=== PATIENT | female | born 1960 | race Caucasian/White ===

== ENCOUNTER 2016-03-30 11:10 | Emergency (ER) | payer OTHER ==
[~2016-03-30] VITALS: Ht 162.6 cm; Wt 99.3 kg
[~2016-03-30 11:10] MED LIST: AMPHETAMINE SAL20 M1 PO; BENTYL 20 MG TA20 M1 PO; CLONAZEPAM 1 MG1 M1 PO; CYCLOBENZAPRINE5 MG PO; GEODON80 MG PO; GLUCOPHAGE1000 MG PO; HYDROCODONE-AP1 EAC6 PO; INVOKANA100 MG PO; JANUMET XR 50-1 EAC1 PO; LAMOTRIGINE200 MG PO; LANTUS SUBQ; LANTUS100 UNIT/M SUBQ; LIDODERM 5%1 PATC1 TRANSDERM; LISINOPRIL10 MG PO; MACROBID 100 M100 M1 PO; NEXIUM40 MG PO; NORFLEX100 MG PO; PEPCID40 MG PO; PERCOCET 5-3251 EACH PO; PHENERGAN 25 MG25 M1 PO; PRAVACHOL80 MG PO; SERTRALINE HCL100 MG PO; TOPAMAX100 MG PO; VICTOZA0.6 MG/0.1 SQ
[2016-03-30] MEDS ORDERED: LEVOTHYROXINE0.05 MG PO (11:42)
[2016-03-30 11:57] LABS: ABSOLUTE NEUTROPHILS 6.7 thou/uL (1.4-8.2); BASOPHILS 0.8 % (0.0-2.0); EOSINOPHILS 1.9 % (0.0-3.0); HEMATOCRIT 38.9 % (37.0-47.0); HEMOGLOBIN 12.9 gm/dL (12.0-15.0); LYMPHOCYTES 19.6 % (24.0-44.0); MANUAL DIFF NO; MCH 30.3 pg (26.0-34.0); MCHC 33.2 % (28.0-37.0); MCV 91.4 fL (80.0-100.0); MONOCYTES 5.9 % (1.0-8.0); PLATELET COUNT 234 thou/uL (150-400); POLYS 71.8 % (36.0-66.0); RBC 4.25 mil/uL (4.20-5.00); RDW 13.5 % (10.5-14.5); WBC 9.4 thou/uL (4.0-11.0)
[2016-03-30 12:00] LABS: CALCIUM 8.9 mg/dL (8.5-10.1); CREATININE 0.9 mg/dL (0.6-1.3); POTASSIUM 4.3 mmol/L (3.5-5.1)
[2016-03-30 12:06] LABS: URINE BILIRUBIN NEGATIVE (Negative); URINE BLOOD 3+ (Negative); URINE COLOR ORANGE; URINE GLUCOSE-RANDOM* 1+ (Negative); URINE KETONES NEGATIVE (Negative); URINE LEUKOCYTES-REFLEX NEGATIVE (Negative); URINE PROTEIN (DIPSTICK) TRACE (Negative); URINE SPECIFIC GRAVITY >= 1.030 (1.003-1.035); URINE UROBILINOGEN 0.2 E.U./dl (0.2-1.0)
[2016-03-30 12:07] LABS: ALBUMIN 3.4 g/dL (3.4-5.0); TOTAL BILIRUBIN 0.1 mg/dL (<0.1-1.0); TOTAL PROTEIN 7.3 g/dL (6.4-8.2)
[2016-03-30 12:44] LABS: SQUAMOUS >10 Many /LPF (0-3)
[2016-03-30] MEDS ORDERED: IBUPROFEN 600600 M1 PO (12:44)
[2016-03-30] MEDS ORDERED: NORCO 5-325 TA1 EACH PO (12:44)
[2016-03-30 12:45] LABS: CASTS None Seen /LPF (None Seen); CRYSTALS None Seen /LPF (None Seen); URINE RBC >20 Many /HPF (0-2); URINE WBC-REFLEX 6-15 Few /HPF (0-5)
[2016-03-30 12:59] VITALS: BP 116/75
== END 2016-03-30 13:00 | disposition home or self-care (01) ==
LOC: ER 11:10
PROVIDERS: Physician Assistant
DX: N23 Unspecified renal colic (principal); E11.9 Type 2 diabetes mellitus without complications; F31.9 Bipolar disorder, unspecified; I10 Essential (primary) hypertension; E78.5 Hyperlipidemia, unspecified; K21.9 Gastro-esophageal reflux disease without esophagitis; Z98.890 Other specified postprocedural states; Z88.1 Allergy status to other antibiotic agents

== ENCOUNTER 2016-04-01 03:44 | Emergency (ER) | payer OTHER ==
[~2016-04-01] VITALS: Ht 162.6 cm; Wt 99.3 kg
[~2016-04-01 03:44] MED LIST changes: +IBUPROFEN 600600 M1 PO; +LEVOTHYROXINE0.05 MG PO; +NORCO 5-325 TA1 EACH PO
[2016-04-01 04:36] LABS: ABSOLUTE NEUTROPHILS 7.5 thou/uL (1.4-8.2); BASOPHILS 0.7 % (0.0-2.0); EOSINOPHILS 2.6 % (0.0-3.0); HEMATOCRIT 38.9 % (37.0-47.0); HEMOGLOBIN 12.6 gm/dL (12.0-15.0); LYMPHOCYTES 26.3 % (24.0-44.0); MCH 29.9 pg (26.0-34.0); MCHC 32.5 % (28.0-37.0); MCV 92.1 fL (80.0-100.0); MONOCYTES 7.6 % (1.0-8.0); PLATELET COUNT 242 thou/uL (150-400); POLYS 62.8 % (36.0-66.0); RBC 4.22 mil/uL (4.20-5.00); RDW 13.3 % (10.5-14.5)
[2016-04-01 04:39] LABS: MANUAL DIFF NO
[2016-04-01 04:41] LABS: CALCIUM 9.2 mg/dL (8.5-10.1); POTASSIUM 3.7 mmol/L (3.5-5.1)
[2016-04-01 04:55] LABS: URINE BILIRUBIN NEGATIVE (Negative); URINE BLOOD 3+ (Negative); URINE COLOR YELLOW; URINE GLUCOSE-RANDOM* NEGATIVE (Negative); URINE KETONES NEGATIVE (Negative); URINE LEUKOCYTES-REFLEX NEGATIVE (Negative); URINE PROTEIN (DIPSTICK) NEGATIVE (Negative); URINE SPECIFIC GRAVITY >= 1.030 (1.003-1.035); URINE UROBILINOGEN 0.2 E.U./dl (0.2-1.0)
[2016-04-01 05:09] LABS: SQUAMOUS >10 Many /LPF (0-3)
[2016-04-01 05:10] LABS: CASTS None Seen /LPF (None Seen); CRYSTALS None Seen /LPF (None Seen); URINE RBC >20 Many /HPF (0-2); URINE WBC-REFLEX 0-5 Rare /HPF (0-5)
[2016-04-01 06:53] VITALS: BP 145/79
== END 2016-04-01 06:40 | disposition home or self-care (01) ==
LOC: ER 03:44
PROVIDERS: Emergency Medicine
DX: R10.9 Unspecified abdominal pain (principal); E11.9 Type 2 diabetes mellitus without complications; F31.9 Bipolar disorder, unspecified; I10 Essential (primary) hypertension; E78.5 Hyperlipidemia, unspecified; K21.9 Gastro-esophageal reflux disease without esophagitis; Z88.1 Allergy status to other antibiotic agents; F10.99 Alcohol use, unspecified with unspecified alcohol-induced disorder

== ENCOUNTER 2017-11-17 13:03 | Emergency (ER) | payer OTHER ==
[~2017-11-17] VITALS: Ht 175.3 cm; Wt 89.4 kg
--- NOTE | ~2017-11-17 | EKG ---
[place] [address] [facility] [place] [address] ELECTROCARDIOGRAM REPORT Name: ZINA HICKEY Room #: [facility]#: [id number] Admission: 11/17/17 Attend Phys: Discharge: 11/17/17 Date of : 62 Report #: [id number] THIS REPORT FOR: //name// [facility] ED Test Date: 2017-11-17 Test Time: 14:06:19 Pat Name: ZINA HICKEY Department: Room: Gender: F Analytical Data Scientist: Pratik PRITCHETT RN : 1960 Requested By: Saran Cobos Order Number: [id number] MD: Froilan Banegas Measurements Intervals [place] Rate: 81 P: 25 AL: 165 QRS: -11 QRSD: 99 T: 11 QT: 352 QTc: 409 Interpretive Statements Sinus rhythm Low voltage, precordial leads Baseline wander in lead(s) V3,V4 Compared to ECG 12/15/2015 04:17:30 Low QRS voltage now present Electronically Signed On 11-18-2017 8:05:24 CDT by Froilan Banegas [email or web address] <ELECTRONICALLY SIGNED> By: Froilan Banegas MD, [facility] 11/18/17 0805 1406 1406 Froilan Banegas MD, [facility] /EPI
[2017-11-17 14:23] LABS: HEMATOCRIT 42.4 % (37.0-47.0); HEMOGLOBIN 14.2 gm/dL (12.0-15.0); MCH 31.3 pg (26.0-34.0); MCHC 33.6 g/dL (28.0-37.0); MCV 93.1 fL (80.0-100.0); RBC 4.55 mil/uL (4.20-5.00); RDW 13.2 % (10.5-14.5); WBC 9.7 thou/uL (4.0-11.0)
[2017-11-17 14:30] LABS: CALCIUM 9.2 mg/dL (8.5-10.1); CREATININE 0.9 mg/dL (0.6-1.0)
[2017-11-17] MEDS ORDERED: JARDIANCE10 MG PO (14:32)
[2017-11-17] MEDS ORDERED: ANTIVERT25 MG PO (14:33)
[2017-11-17] MEDS ORDERED: PEPCID20 MG PO (14:33)
[2017-11-17] MEDS ORDERED: PERCOCET 10-321 EACH PO (14:36)
[2017-11-17] MEDS ORDERED: NORCO 5-325 TA1 EACH PO (14:37)
[2017-11-17] MEDS ORDERED: OSPHENA60 MG PO (14:38)
[2017-11-17] MEDS ORDERED: CLOTRIMAZOLE10 MG DISSOLVE (14:40)
[2017-11-17 14:42] LABS: APTT 25.2 Seconds (24.5-32.8); D-DIMER 0.4 ug/mLFEU (0.19-0.50); PROTIME 9.9 Seconds (9.3-11.4)
[2017-11-17] MEDS ORDERED: LEVEMIR SUBQ (14:50)
[2017-11-17] MEDS ORDERED: SYNTHROID75 MCG PO (14:54)
[2017-11-17] MEDS ORDERED: AMBIEN 5 MG TABL5 M1 PO (14:58)
[2017-11-17] MEDS ORDERED: CO Q-10100 MG PO (14:59)
[2017-11-17] MEDS ORDERED: ASPIR 8181 MG PO (14:59)
[2017-11-17] MEDS ORDERED: VITAMIN B-12500 MCG PO (15:00)
[2017-11-17] MEDS ORDERED: MOBIC15 MG PO (15:23)
[2017-11-17 15:39] VITALS: BP 108/66
== END 2017-11-17 15:40 | disposition home or self-care (01) ==
LOC: ER 13:03
PROVIDERS: Emergency Medicine
DX: M79.661 Pain in right lower leg (principal); M79.662 Pain in left lower leg; R07.89 Other chest pain; J45.909 Unspecified asthma, uncomplicated; E11.9 Type 2 diabetes mellitus without complications; F31.9 Bipolar disorder, unspecified; I10 Essential (primary) hypertension; E78.00 Pure hypercholesterolemia, unspecified; E78.5 Hyperlipidemia, unspecified; K21.9 Gastro-esophageal reflux disease without esophagitis; Z98.890 Other specified postprocedural states; Z90.49 Acquired absence of other specified parts of digestive tract; Z87.442 Personal history of urinary calculi; Z79.4 Long term (current) use of insulin; Z88.1 Allergy status to other antibiotic agents

== ENCOUNTER 2019-01-18 12:12 | Emergency (ER) | payer OTHER ==
[~2019-01-18] VITALS: Ht 165.1 cm; Wt 96.6 kg
[~2019-01-18 12:12] MED LIST changes: +AMBIEN 5 MG TABL5 M1 PO; +ANTIVERT25 MG PO; +ASPIR 8181 MG PO; +CLOTRIMAZOLE10 MG DISSOLVE; +CO Q-10100 MG PO; +JARDIANCE10 MG PO; +LEVEMIR SUBQ; +MOBIC15 MG PO; +OSPHENA60 MG PO; +PEPCID20 MG PO; +PERCOCET 10-321 EACH PO; +SYNTHROID75 MCG PO; +VITAMIN B-12500 MCG PO
[2019-01-18 12:35] LABS: URINE BILIRUBIN NEGATIVE (Negative); URINE BLOOD NEGATIVE (Negative); URINE CLARITY CLEAR; URINE COLOR YELLOW; URINE GLUCOSE-RANDOM* 2+ (Negative); URINE KETONES TRACE (Negative); URINE LEUKOCYTES-REFLEX NEGATIVE (Negative); URINE NITRITE-REFLEX NEGATIVE (Negative); URINE PROTEIN (DIPSTICK) NEGATIVE (Negative); URINE SPECIFIC GRAVITY 1.025 (1.005-1.035); URINE UROBILINOGEN 0.2 E.U./dl (0.2-1.0)
[2019-01-18 12:50] LABS: ABSOLUTE NEUTROPHILS 3.8 thou/uL (1.4-8.2); BASOPHILS 0.7 % (0.0-2.0); EOSINOPHILS 1.8 % (0.0-3.0); HEMATOCRIT 35.5 % (37.0-47.0); HEMOGLOBIN 11.7 gm/dL (12.0-15.0); LYMPHOCYTES 32.4 % (24.0-44.0); MCH 29.7 pg (26.0-34.0); MCV 90.1 fL (80.0-100.0); PLATELET COUNT 301 thou/uL (150-400); POLYS 60.1 % (36.0-66.0); RBC 3.94 mil/uL (4.20-5.00); RDW 14.4 % (10.5-14.5); WBC 6.3 thou/uL (4.0-11.0)
[2019-01-18 12:57] LABS: ANION GAP 9 mmol/L (7-16); BUN 21 mg/dL (7-18); CHLORIDE 101 mmol/L (98-107); CO2 26 mmol/L (21-32); CREATININE 0.8 mg/dL (0.6-1.0); GLUCOSE 318 mg/dL (74-106); POTASSIUM 3.9 mmol/L (3.5-5.1); SODIUM 136 mmol/L (136-145)
[2019-01-18 13:08] LABS: ALBUMIN 3.4 g/dL (3.4-5.0); SGOT 13 U/L (15-37); SGPT 23 U/L (30-65); TOTAL BILIRUBIN 0.4 mg/dL (<0.1-1.0); TOTAL PROTEIN 7.4 g/dL (6.4-8.2); TROPONIN-I <0.06 ng/mL (<0.06)
[2019-01-18] MEDS ORDERED: TESSALON PERLE100 MG PO (14:19)
[2019-01-18] MEDS ORDERED: FLONASE 0.05%50 MCG NASAL (14:19)
[2019-01-18 14:37] VITALS: BP 115/59
--- NOTE | 2019-01-19 08:41 | EKG ---
[place] [address] [facility] [place] [address] ELECTROCARDIOGRAM REPORT Name: ZINA HICKEY Room #: [facility]#: [id number] Admission: 01/18/19 Attend Phys: Discharge: 01/18/19 Date of : 62 Report #: [id number] THIS REPORT FOR: //name// [facility] ED Test Date: 2019-01-18 Test Time: 13:12:50 Pat Name: ZINA HICKEY Department: Room: Gender: F Mobile Marketing Manager: luisa : 1960 Requested By: Erendira Villegas Order Number: [id number] MD: Froilan Banegas Measurements Intervals [place] Rate: 72 P: 14 [place]: 168 QRS: -14 QRSD: 96 T: 16 QT: 388 QTc: 425 Interpretive Statements Sinus rhythm Abnormal R-wave progression, late transition Compared to ECG 11/17/2017 14:06:19 No significant changes Electronically Signed On 01-19-2019 8:40:58 CDT by Froilan Banegas [email or web address] <ELECTRONICALLY SIGNED> By: Froilan Banegas MD, [facility] 01/19/19 0840 D: [id number] Froilan Banegas MD, [facility]ACC /EPI
== END 2019-01-18 14:38 | disposition home or self-care (01) ==
LOC: ER 12:12
PROVIDERS: Emergency Medicine
DX: J06.9 Acute upper respiratory infection, unspecified (principal); I10 Essential (primary) hypertension; E11.9 Type 2 diabetes mellitus without complications; E78.5 Hyperlipidemia, unspecified; K21.9 Gastro-esophageal reflux disease without esophagitis; F31.9 Bipolar disorder, unspecified; Z98.890 Other specified postprocedural states; Z90.49 Acquired absence of other specified parts of digestive tract; Z87.442 Personal history of urinary calculi; Z88.1 Allergy status to other antibiotic agents

== ENCOUNTER 2019-04-11 14:26 | Emergency (ER) | payer OTHER ==
[~2019-04-11] VITALS: Ht 165.1 cm; Wt 95.3 kg
[~2019-04-11 14:26] MED LIST changes: +FLONASE 0.05%50 MCG NASAL; +TESSALON PERLE100 MG PO
[2019-04-11 16:00] LABS: URINE BILIRUBIN NEGATIVE (Negative); URINE BLOOD NEGATIVE (Negative); URINE CLARITY CLEAR; URINE COLOR YELLOW; URINE GLUCOSE-RANDOM* 2+ (Negative); URINE KETONES 1+ (Negative); URINE LEUKOCYTES-REFLEX NEGATIVE (Negative); URINE NITRITE-REFLEX NEGATIVE (Negative); URINE PROTEIN (DIPSTICK) NEGATIVE (Negative); URINE SPECIFIC GRAVITY 1.015 (1.005-1.035); URINE UROBILINOGEN 0.2 E.U./dl (0.2-1.0)
[2019-04-11 16:09] LABS: AMP/METHAMP Negative (Negative); BARBITURATES Negative (Negative); BENZODIAZEPINES Negative (Negative); COCAINE Negative (Negative); METHADONE Negative (Negative); OPIATES Negative (Negative); PCP Negative (Negative)
[2019-04-11 16:13] LABS: BASOPHILS 1.1 % (0.0-2.0); EOSINOPHILS 2.3 % (0.0-3.0); HEMATOCRIT 37.2 % (37.0-47.0); HEMOGLOBIN 12.3 gm/dL (12.0-15.0); MCH 29.1 pg (26.0-34.0); MCV 88.2 fL (80.0-100.0); MONOCYTES 5.5 % (1.0-8.0); PLATELET COUNT 267 thou/uL (150-400); POLYS 59.1 % (36.0-66.0); RBC 4.22 mil/uL (4.20-5.00); RDW 14.8 % (10.5-14.5); WBC 6.7 thou/uL (4.0-11.0)
[2019-04-11 16:18] LABS: ANION GAP 15 mmol/L (7-16); BUN 22 mg/dL (7-18); CALCIUM 9.2 mg/dL (8.5-10.1); CHLORIDE 97 mmol/L (98-107); CO2 24 mmol/L (21-32); CREATININE 0.9 mg/dL (0.6-1.0); GLUCOSE 341 mg/dL (74-106); POTASSIUM 3.6 mmol/L (3.5-5.1); SODIUM 136 mmol/L (136-145)
[2019-04-11 16:26] LABS: ALBUMIN 3.5 g/dL (3.4-5.0); SGOT 17 U/L (15-37); SGPT 27 U/L (30-65); TOTAL BILIRUBIN 0.4 mg/dL (<0.1-1.0); TOTAL PROTEIN 7.7 g/dL (6.4-8.2); TROPONIN-I <0.06 ng/mL (<0.06)
[2019-04-11 17:32] VITALS: BP 157/79
--- NOTE | 2019-04-12 17:19 | EKG ---
[address] [address] ELECTROCARDIOGRAM REPORT Name: ZINA HICKEY Room #: [facility]P [facility]#: [id number] Admission: 04/11/19 Attend Phys: Discharge: 04/11/19 Date of : 62 Report #: [id number] THIS REPORT FOR: //name// [facility] ED Test Date: 2019-04-11 Test Time: 14:52:33 Pat Name: ZINA HICKEY Department: Room: Gender: F Bodywork Therapist[facility] 1960 Requested By: Erendira Villegas Order Number: [id number] MD: Dion Paulino Measurements Intervals [place] Rate: 79 P: 48 GA: 151 QRS: -11 QRSD: 92 T: 40 QT: 387 QTc: 444 Interpretive Statements Sinus rhythm Compared to ECG 01/18/2019 13:12:50 No significant changes Electronically Signed On 04-12-2019 17:19:20 CANDLE MOLDER by Dion Paulino [email or web address] <ELECTRONICALLY SIGNED> By: Dion Paulino MD 04/12/19 1719 [id number] 51 MD LORETO Chamorro
== END 2019-04-11 17:46 | disposition home or self-care (01) ==
LOC: ER 14:26
PROVIDERS: Physician Assistant
DX: J06.9 Acute upper respiratory infection, unspecified (principal); E86.9 Volume depletion, unspecified; R00.2 Palpitations; R42 Dizziness and giddiness; I10 Essential (primary) hypertension; E78.5 Hyperlipidemia, unspecified; E11.9 Type 2 diabetes mellitus without complications; K21.9 Gastro-esophageal reflux disease without esophagitis; F31.9 Bipolar disorder, unspecified; Z98.890 Other specified postprocedural states; Z90.49 Acquired absence of other specified parts of digestive tract; Z87.442 Personal history of urinary calculi; Z88.1 Allergy status to other antibiotic agents

== ENCOUNTER 2020-01-26 10:51 | Emergency (ER) | payer OTHER ==
[~2020-01-26] VITALS: Ht 162.6 cm; Wt 104.3 kg
[2020-01-26] MEDS ORDERED: LANTUS SOL100 UNIT/1 SUBQ (11:10)
[2020-01-26] MEDS ORDERED: METHYLPREDNISOLO4 M1 PO (11:11)
[2020-01-26] MEDS ORDERED: CLONIDINE HCL0.1 MG PO (11:12)
[2020-01-26 11:27] LABS: URINE BILIRUBIN NEGATIVE (Negative); URINE BLOOD TRACE (Negative); URINE CLARITY CLEAR; URINE COLOR YELLOW; URINE GLUCOSE-RANDOM* 3+ (Negative); URINE KETONES TRACE (Negative); URINE LEUKOCYTES-REFLEX NEGATIVE (Negative); URINE NITRITE-REFLEX NEGATIVE (Negative); URINE PROTEIN (DIPSTICK) NEGATIVE (Negative); URINE SPECIFIC GRAVITY <= 1.005 (1.005-1.035); URINE UROBILINOGEN 0.2 E.U./dl (0.2-1.0)
[2020-01-26 11:48] LABS: ABSOLUTE NEUTROPHILS 11.5 thou/uL (1.4-8.2); BASOPHILS 0.6 % (0.0-2.0); HEMATOCRIT 36.2 % (37.0-47.0); HEMOGLOBIN 11.7 gm/dL (12.0-15.0); LYMPHOCYTES 5.9 % (24.0-44.0); MCH 28.7 pg (26.0-34.0); MCHC 32.3 g/dL (28.0-37.0); MCV 88.9 fL (80.0-100.0); MONOCYTES 1.3 % (1.0-8.0); PLATELET COUNT 281 thou/uL (150-400); POLYS 92.2 % (36.0-66.0); RBC 4.06 mil/uL (4.20-5.00); RDW 16.2 % (10.5-14.5); WBC 12.5 thou/uL (4.0-11.0)
[2020-01-26 11:57] LABS: ALBUMIN 3.6 g/dL (3.4-5.0); CALCIUM 9.7 mg/dL (8.5-10.1); CREATININE 1.2 mg/dL (0.6-1.0); POTASSIUM 4.2 mmol/L (3.5-5.1); TOTAL BILIRUBIN 0.3 mg/dL (0.2-1.0)
[2020-01-26 17:13] VITALS: BP 131/104
--- NOTE | 2020-01-28 07:43 | EKG ---
[facility] [place] [address] ELECTROCARDIOGRAM REPORT Name: ZINA HICKEY Room #: [facility]#: [id number] Admission: 01/26/20 Attend Phys: Discharge: 01/26/20 Date of : 62 Report #: [id number] THIS REPORT FOR: cc: Caity Tao MD,Caity Banegas,Froilan King MD [facility] ~ THIS REPORT FOR: //name// [facility] ED Test Date: 2020-01-26 Test Time: 12:10:20 Pat Name: ZINA HICKEY Department: Room: Gender: F Transport Manager: NO : 1960 Requested By: Sae Villafana Order Number: [id number] MD: Froilan Banegas Measurements Intervals [place] Rate: 96 P: 15 [place]: 181 QRS: -22 QRSD: 96 T: 3 QT: 363 QTc: 459 Interpretive Statements Sinus rhythm Abnormal R-wave progression, late transition Compared to ECG 04/11/2019 14:52:33 No significant changes Electronically Signed On 01-28-2020 7:43:42 DIRECTOR DIGITAL MARKETING by Froilan Banegas [email or web address] <ELECTRONICALLY SIGNED> By: Froilan Banegas MD, FAC 01/28/20 0743 1210 1210 Froilan Banegas MD, [facility] /EPI
== END 2020-01-26 17:14 | disposition home or self-care (01) ==
LOC: ER 10:51
PROVIDERS: Physician Assistant
DX: E11.65 Type 2 diabetes mellitus with hyperglycemia (principal); R06.02 Shortness of breath; R05 Cough; F31.9 Bipolar disorder, unspecified; I10 Essential (primary) hypertension; E78.5 Hyperlipidemia, unspecified; K21.9 Gastro-esophageal reflux disease without esophagitis; Z79.4 Long term (current) use of insulin; Z79.899 Other long term (current) drug therapy; Z79.82 Long term (current) use of aspirin; Z98.890 Other specified postprocedural states; Z87.442 Personal history of urinary calculi

== ENCOUNTER 2020-02-04 06:40 | Emergency (ER) | payer OTHER ==
[~2020-02-04] VITALS: Ht 167.6 cm; Wt 105.2 kg
[~2020-02-04 06:40] MED LIST changes: +CLONIDINE HCL0.1 MG PO; +LANTUS SOL100 UNIT/1 SUBQ; +METHYLPREDNISOLO4 M1 PO
[2020-02-04] MEDS ORDERED: LEVOXYL88 MCG PO (06:49)
[2020-02-04] MEDS ORDERED: LANTUS SUBQ (06:49)
[2020-02-04] MEDS ORDERED: HUMULIN R100 UNIT/1 SUBQ (06:50)
[2020-02-04] MEDS ORDERED: HYDROCHLOROTHIA25 M2 PO (06:50)
[2020-02-04] MEDS ORDERED: HUMULINU500 SUBQ (06:54)
[2020-02-04 07:33] LABS: ABSOLUTE NEUTROPHILS 4.6 thou/uL (1.4-8.2); BASOPHILS 0.8 % (0.0-2.0); EOSINOPHILS 1.6 % (0.0-3.0); HEMATOCRIT 32.2 % (37.0-47.0); HEMOGLOBIN 10.8 gm/dL (12.0-15.0); MCHC 33.5 g/dL (28.0-37.0); MCV 86.6 fL (80.0-100.0); MONOCYTES 7.6 % (1.0-8.0); PLATELET COUNT 243 thou/uL (150-400); RBC 3.72 mil/uL (4.20-5.00); RDW 15.5 % (10.5-14.5)
[2020-02-04 07:36] LABS: ANION GAP 12 mmol/L (7-16); BUN 24 mg/dL (7-18); CHLORIDE 102 mmol/L (98-107); CO2 23 mmol/L (21-32); CREATININE 0.9 mg/dL (0.6-1.0); GLUCOSE 230 mg/dL (74-106); POTASSIUM 3.5 mmol/L (3.5-5.1); SODIUM 137 mmol/L (136-145)
[2020-02-04 07:46] LABS: ALBUMIN 3.1 g/dL (3.4-5.0); SGOT 16 U/L (15-37); SGPT 31 U/L (30-65); TOTAL BILIRUBIN 0.2 mg/dL (0.2-1.0); TOTAL PROTEIN 6.7 g/dL (6.4-8.2); TROPONIN-I <0.06 ng/mL (<0.06)
[2020-02-04 10:58] VITALS: BP 120/55
--- NOTE | 2020-02-04 14:11 | EKG ---
[facility] [place] [address] ELECTROCARDIOGRAM REPORT Name: ZINA HICKEY Room #: DEP [facility]#: [id number] Admission: 02/04/20 Attend Phys: Discharge: 02/04/20 Date of : 62 Report #: [id number] THIS REPORT FOR: cc: FAM - Family physician unknown FAM - Family physician unknown Franky Montalvo MD [facility] THIS REPORT FOR: //name// [facility] ED Test Date: 2020-02-04 Test Time: 06:51:30 Pat Name: ZINA HICKEY Department: Room: Gender: F Ui Application Developer: : 1960 Requested By: Js Romo Order Number: [id number] MD: Franky Montalvo Measurements Intervals [place] Rate: 71 P: 33 MT: 154 QRS: -13 QRSD: 97 T: 1 QT: 414 QTc: 450 Interpretive Statements Sinus rhythm Abnormal R-wave progression, late transition Baseline wander in lead(s) V1 Compared to ECG 01/26/2020 12:10:20 No significant changes Electronically Signed On 02-04-2020 14:11:22 OLIVE GRADER by Franky Montalvo [email or web address] <ELECTRONICALLY SIGNED> By: Franky Montalvo MD, FACC 02/04/20 1411 0651 [id number] Franky Montalvo MD, [facility] /EPI
== END 2020-02-04 10:58 | disposition home or self-care (01) ==
LOC: ER 06:40
PROVIDERS: Emergency Medicine
DX: R06.02 Shortness of breath (principal); R07.9 Chest pain, unspecified; I10 Essential (primary) hypertension; E11.9 Type 2 diabetes mellitus without complications; E78.5 Hyperlipidemia, unspecified; K21.9 Gastro-esophageal reflux disease without esophagitis; Z79.899 Other long term (current) drug therapy; Z79.4 Long term (current) use of insulin; Z79.82 Long term (current) use of aspirin

== ENCOUNTER → 2020-02-28 | Outpatient (CLI) | payer OTHER ==
[~2020-02-28] MED LIST changes: +HUMULIN R100 UNIT/1 SUBQ; +HUMULINU500 SUBQ; +HYDROCHLOROTHIA25 M2 PO; +LEVOXYL88 MCG PO
--- NOTE | 2020-02-28 14:27 | 2DMMODE ---
[facility] [address] 2 D/M-MODE ECHOCARDIOGRAM Name: ELINORRodgerZINA L Room #: REG [facility]#: [id number] Admission: 02/28/20 Attend Phys: Soham Figueroa MD Discharge: Date of : 62 Report #: [id number] THIS REPORT FOR: cc: JOHN LYNN MD, OSSAMA MD Park, Jin S. MD ~ APPROVED REPORT Study performed: 02/28/2020 13:45:04 EXAM: Comprehensive 2D, Doppler, and color-flow Echocardiogram Patient Location: Out-Patient Room #: 2 Status: routine BSA: 2.14 HR: 103 bpm BP: 146/76 mmHg Rhythm: Tachycardia Other Information Study Quality: Good Indications Diabetes Dyspnea Hypertension/HDD 2D Dimensions RVDd: 34.76 mm IVSd: 9.38 (7-11mm) LVOT Diam: 20.67 (18-24mm) LVDd: 50.15 mm PWd: 9.80 (7-11mm) Ascending Ao: 31.07 (22-36mm) LVDs: 34.68 (25-40mm) Aortic Root: 36.14 mm IVC: 15.00 mm Volumes Left Atrial Volume (Systole) Single Plane 4CH: 31.06 mL Single Plane 2CH: 32.75 mL LA ESV Index: 17.00 mL/m2 Aortic Valve AoV Peak Amadou.: 1.27 m/s AO Peak Gr.: 6.42 mmHg LVOT Max P.34 mmHg LVOT Max V: 1.04 m/s [facility] [address] [place] [address] 2 D/M-MODE ECHOCARDIOGRAM Name: ELINORRodgerZINA Room #: REG [facility]#: [id number] Admission: 02/28/20 Attend Phys: Brigette Baum Discharge: Date of : 62 Report #: [id number] [id number] Vmax: 2.76 cm2 Pulmonary Valve PV Peak Amadou.: 1.02 m/s PV Peak Gr.: 4.17 mmHg Left Ventricle The left ventricle is normal size. There is normal LV segmental wall motion. There is normal left ventricular wall thickness. Left ventricular systolic function is normal. The left ventricular ejection fraction is within the normal range. LVEF is 55-60%. Right Ventricle The right ventricle is normal size. The right ventricular systolic function is normal. Atria The left atrium size is normal. The right atrium size is normal. Aortic Valve The aortic valve is normal in structure. No aortic regurgitation is present. There is no aortic valvular stenosis. Mitral Valve The mitral valve is normal in structure. There is no mitral valve regurgitation noted. No evidence of mitral valve stenosis. Tricuspid Valve The tricuspid valve is normal in structure. There is no tricuspid valve regurgitation noted. Pulmonic Valve The pulmonary valve is normal in structure. There is no pulmonic valvular regurgitation. Great Vessels The aortic root is normal in size. IVC is normal in size and collapses >50% with inspiration. Pericardium There is no pericardial effusion. <Conclusion> The left ventricle is normal size. There is normal left ventricular wall thickness. Left ventricular systolic function is normal. [facility] [address] [place] [address] 2 D/M-MODE ECHOCARDIOGRAM Name: ZINA HICKEY Room #: [facility]#: [id number] Admission: 02/28/20 Attend Phys: Brigette Baum Discharge: Date of : 62 Report #: [id number] The right ventricle is normal size. The left atrium size is normal. The aortic valve is normal in structure. There is no mitral valve regurgitation noted. There is no tricuspid valve regurgitation noted. <ELECTRONICALLY SIGNED> By: Oneil Soria MD 02/28/20 1426 142 142 Oneil Soria MD /INF
== END ==
LOC: RAD 13:03
PROVIDERS: ATTEND Pediatrics
DX: R06.02 Shortness of breath (principal)